=== PATIENT | male | born 1960 | race Caucasian/White ===

== ENCOUNTER 2020-05-15 07:22 | Outpatient (REF) | payer OTHER, SELFPAY ==
[2020-05-15 11:24] LABS: Hematocrit 45.9 % (42-52); Hemoglobin 15.1 g/dl (14.0-18.0); Mean Corpuscular HGB Conc 32.9 g/dl (31.0-36.0); Mean Corpuscular Hemoglobin 30.1 pg (27.0-33.0); Mean Corpuscular Volume 91.4 fL (80-98); Platelet Count 384 X10*3/uL (160-400); Red Blood Count 5.02 X10*6/uL (4.60-5.80); Red Cell Distribution Width 12.4 % (11.0-16.0); White Blood Count 8.3 X10*3/uL (4.8-10.8)
[2020-05-15 11:55] LABS: Alanine Aminotransferase 44 U/L (0-40); Albumin Level 4.6 g/dL (3.5-5.0); Alkaline Phosphatase 56 U/L (39-117); Anion Gap 11 (12-20); Aspartate Amino Transferase 33 U/L (5-37); Bilirubin Total 0.6 mg/dL (0.0-1.0); Blood Urea Nitrogen 16 mg/dL (9-16); Calcium 9.4 mg/dL (8.4-10.2); Carbon Dioxide 29 mmol/L (22-29); Chloride 103 mmol/L (96-108); Cholesterol 218 mg/dL; Estimated Glomerular Filt Rate > 60; Glucose Random 106 mg/dL (60-115); HDL Cholesterol 54 mg/dL; LDL Cholesterol Calculated 149 mg/dl; Potassium 4.4 mmol/l (3.3-5.1); Sodium 139 mmol/L (135-145); Total Protein 7.1 g/dL (6.5-8.0); Triglycerides 77 mg/dL
[2020-05-15 11:58] LABS: Glucose Urine UA NEG (NEG); Leukocyte Esterase Urine NEG (NEG); Nitrite Urine NEG (NEG); PH 6.5 (5.0-8.0); Urine Blood NEG (NEG); Urine Ketones NEG (NEG); Urine Protein NEG (NEG-TRACE)
[2020-05-15 12:04] LABS: Prostate Specific Antigen Scr 1.45 ng/mL (<0.05-4.0)
[2020-05-15 12:07] LABS: Appearance Urine CLEAR; Color Urine YELLOW
[2020-05-15 12:59] LABS: RBC Urine 0-2 /HPF (0); WBC Urine 0 /HPF (0-4)
== END 2020-05-15 07:23 | disposition home or self-care (01) ==
LOC: HO.HMGCLDS 07:22
PROVIDERS: PCP Internal Medicine; Visit Provider Internal Medicine
DX: N40.0 Benign prostatic hyperplasia without lower urinary tract symptoms (principal); Z00.00 Encounter for general adult medical examination without abnormal findings
CPT/HCPCS: 36415; 80053; 80061; 81001; 84153; 85027

== ENCOUNTER 2020-10-05 06:38 | Day surgery (SDC) | payer OTHER, SELFPAY ==
[2020-08-23 11:16] VITALS: BMI 31.1
--- NOTE | 2020-10-03 14:35 | HO.ANESPROP2 ---
Documented by User: Kina Loaiza 10/03/20 14:35 HPI - Anesthesia Eval Consult details Narrative: 60yo M for Colonoscopy [facility] Active Problems Active Problems: All Active Problems (Updated 05/11/20 @ 08:16 by Mariama Martinez MD) BPH (benign prostatic hyperplasia) (Acute) Annual physical exam (Acute) Past Medical History Medical History Annual physical exam BPH (benign prostatic hyperplasia) Family history of colon cancer Mood disorder Onychomycosis Family History Family History Father No problems noted. Mother No problems noted. Brother Colon cancer Sister No problems noted. Sister No problems noted. Daughter No problems noted. Surgical History Surgical History H/O colonoscopy History of inguinal hernia repair History of shoulder surgery Tibia fracture Social History Social History Alcohol intake: current Alcohol intake frequency: a few times a month Smoking Status: Never smoker Advance Directives: No Advance Directives Information Provided: No Advance Directives on File: No Recently lost weight without trying: No Meds Allergies Allergy/AdvReac Type Severity Reaction Status Date / Time No Known Allergies Allergy Verified 10/05/20 06:45 Home Medications Medication Instructions Recorded Confirmed Last Taken Type tamsulosin 0.4 mg capsule 0.4 mg PO BID 05/11/20 08/23/20 Unknown History Exam Exam Date and Time: October 03, 2020 1435 Height,Weight and Vital Signs: Height 5 ft 9 in Weight 95.708 kg Assessment and Plan Assessment Anesthesia Assessment: Chart Reviewed Documented by User: Seema Stanton 10/05/20 07:29 [facility] Past Medical History Medical History Annual physical exam BPH (benign prostatic hyperplasia) Family history of colon cancer Mood disorder Onychomycosis Family History Family History Father No problems noted. Mother No problems noted. Brother Colon cancer Sister No problems noted. Sister No problems noted. Daughter No problems noted. Surgical History Surgical History H/O colonoscopy History of inguinal hernia repair History of shoulder surgery Tibia fracture Social History Social History Alcohol intake: current Alcohol intake frequency: a few times a month Smoking Status: Never smoker Advance Directives: No Advance Directives Information Provided: No Advance Directives on File: No Recently lost weight without trying: No Meds Allergies Allergy/AdvReac Type Severity Reaction Status Date / Time No Known Allergies Allergy Verified 10/05/20 06:45 Home Medications Medication Instructions Recorded Confirmed Last Taken Type tamsulosin 0.4 mg capsule 0.4 mg PO BID 05/11/20 08/23/20 Unknown History Exam Airway Mallampati Class: II TM Dist: >3cm Neck ROM: Full Loose/Missing/Broken Teeth: No Heart: RRR Lungs: CTA Assessment and Plan Assessment Anesthesia Assessment: Anesthesia Plan Discussed and Chart Reviewed Final Anesthetic Review NPO: Yes ASA Class: II Final Preanesthetic Review: Meds/Allgs Chart Reviewed, Consent Obtained/Reviewed and Anes Risks/Benef Reviewed Patient Risk: Low Procedure Risk: Low Anesthetic Plan Anesthetic Plan: MAC: Disposition: Standard PACU
[2020-10-05 06:50] VITALS: BP 113/73; PULSE 71; RESP 16; TEMP 36.6; O2SAT 97
[2020-10-05] MEDS: Lactated Ringers 1,000 ML 100 ML IVCONT (06:59)
[2020-10-05 08:24] VITALS: BP 91/59; PULSE 67; RESP 14; TEMP 36.2; O2SAT 98
--- NOTE | 2020-10-05 08:25 | PM.OP ---
Brief Operative Note Date of Service: 10/05/20 Pre-op diagnosis: Screening Post-op diagnosis: other (Colon polyps) Procedure: Colonoscopy to the cecum and TI with biopsy and removal of polyps Surgeon: Chalino Candelario Anesthesia: MAC Estimated blood loss (mL): 3.0 Pathology: other (A. Transverse colon polyp B. Rectal polyp) Condition: stable Disposition: PACU
[2020-10-05 08:39] VITALS: PULSE 74; RESP 16; O2SAT 98
--- NOTE | 2020-10-05 10:37 | OP_ITS ---
SURGEON: Chalino Candelario MD INDICATIONS: The patient presents for evaluation of personal history of colon polyps and colorectal cancer screening. Full consent has been obtained from him for this, including risks of bleeding and perforation. PREOPERATIVE DIAGNOSIS: POSTOPERATIVE DIAGNOSIS: PROCEDURE PERFORMED: Colonoscopy to cecum and terminal ileum with biopsy and removal of polyps. ESTIMATED BLOOD LOSS: COMPLICATIONS: ANESTHESIA: Monitored anesthesia care. ASSISTANTS: SPECIMENS: PREOPERATIVE DIAGNOSES: Colorectal cancer screening and personal history of colon polyps. POSTOPERATIVE DIAGNOSES: Colorectal cancer screening and personal history of colon polyps, colon polyps, diverticulosis, and minimal internal hemorrhoids. DESCRIPTION OF PROCEDURE: The patient was placed in the left lateral decubitus position. The digital rectal exam revealed no abnormalities. The Olympus video pediatric colonoscope was entered into the rectum and advanced easily to the cecum. Once in the cecum I did identify normal-appearing cecal pouch with appendiceal orifice and a normal-appearing ileocecal valve. The terminal ileum was cannulated and appeared normal. The scope was withdrawn back in the colon. The entire cecum and ileocecal valve appeared normal. The scope was slowly withdrawn assessing all mucosal surfaces carefully. Preparation was excellent. In the transverse colon and in the rectum were flat less than 5 mm polyps, which were each biopsied and completely removed with cold biopsy forceps. I did not visualize any other polyps, colitis, or angiodysplasia. There was a mild amount of sigmoid diverticulosis. In the rectum, scope was retroflexed visualizing minimal internal hemorrhoids, but no other pathology. The rectal mucosa appeared normal. The scope was straightened and withdrawn from the patient. He tolerated the procedure well and returned to the recovery area in stable condition. IMPRESSION: 1. Small colon and rectal polyps, status post biopsy and removal. 2. Mild diverticulosis. 3. Minimal internal hemorrhoids. PLAN: The results of the biopsies will be checked. I would recommend a repeat colonoscopy in 5 years for further screening. He will otherwise see me on a p.r.n. basis. MD NIKKI Palafox/SANJUANA / [id number]
== END 2020-10-05 09:40 | disposition home or self-care (01) ==
PROVIDERS: PCP Internal Medicine; Visit Provider Internal Medicine
PROC: 0DJD8ZZ Inspection of Lower Intestinal Tract, Via Natural or Artificial Opening Endoscopic (ICD-10-PCS; CPT 45378; principal; 2020-10-05 07:30)
DX: Z12.11 Encounter for screening for malignant neoplasm of colon (principal); D12.8 Benign neoplasm of rectum; K63.5 Polyp of colon; K57.30 Diverticulosis of large intestine without perforation or abscess without bleeding; K64.8 Other hemorrhoids; Z86.010 Personal history of colon polyps; Z80.0 Family history of malignant neoplasm of digestive organs
CPT/HCPCS: 45380; 88305; J3010